=== PATIENT | male | born 1955 | race Asian ===

== ENCOUNTER 2018-04-28 10:43 | Day surgery (SDC) | payer BC ==
[2018-04-28] MEDS: VANCOMYCIN 1 GM (PMX) 250 ML IVPB (13:41)
[2018-04-28] MEDS ORDERED: MIDAZOLAM 1 MG/ML 2 ML INJ (15:33)
[2018-04-28] MEDS ORDERED: PROPOFOL 20 ML ×2 (15:33→17:30)
[2018-04-28] MEDS ORDERED: ONDANSETRON 4 MG INJ (15:34)
[2018-04-28] MEDS ORDERED: FENTAnyl 50 MCG/ML VIAL (15:34)
[2018-04-28] MEDS ORDERED: METOCLOPRAMIDE 10 MG INJ (15:34)
[2018-04-28] MEDS ORDERED: OXYCODONE/ACETAMINOPHEN (5/325) TAB PO (18:25)
[2018-04-28] MEDS ORDERED: OXYCODONE/ACETAMINOPHEN (5/325) TAB (18:26)
[2018-04-28] MEDS: OXYCODONE/ACETAMINOPHEN (5/325) TAB PO (18:29)
== END 2018-04-28 18:40 | disposition home or self-care (01) ==
LOC: SDS 10:43
DX: N21.0 Calculus in bladder (principal); E11.9 Type 2 diabetes mellitus without complications; E03.9 Hypothyroidism, unspecified
CPT/HCPCS: 52318; 82962; 88300

== ENCOUNTER 2018-08-04 07:43 | Day surgery (SDC) | payer BC ==
[~2018-08-04 07:43] MED LIST: CIPRO 400 MG/200 ML D5W IVPB; CIPROFLOXACIN 400 MG in D5W 200 ML IVPB; METOCLOPRAMIDE 10 MG INJ
[2018-08-04 09:34] LABS: ADD MAN DIFF? NO
[2018-08-04 09:39] LABS: BASOPHIL # 0.1 10^3/ul (0.0-0.1); BASOPHILS % 1.1 % (0.0-2.0); EOSINOPHILS # 0.3 10^3/ul (0.0-0.5); EOSINOPHILS % 4.7 % (0.0-7.0); HEMATOCRIT 41.2 % (42.0-52.0); HEMOGLOBIN 13.7 g/dl (14.0-18.0); LYMPHOCYTES # 1.4 10^3/ul (0.8-2.9); LYMPHOCYTES % 19.5 % (15.0-51.0); MEAN CORPUSCULAR HEMOGLOBIN 28.1 pg (29.0-33.0); MEAN CORPUSCULAR HGB CONC 33.3 g/dl (32.0-37.0); MEAN CORPUSCULAR VOLUME 84.4 fl (82.0-101.0); MEAN PLATELET VOLUME 11.1 fl (7.4-10.4); MONOCYTE # 0.4 10^3/ul (0.3-0.9); MONOCYTES % 5.8 % (0.0-11.0); NEUTROPHIL # 4.9 10^3/ul (1.6-7.5); NEUTROPHILS % 68.6 % (39.0-77.0); PLATELET COUNT 224 10^3/UL (140-415); RED BLOOD COUNT 4.88 10^6/ul (4.70-6.10); RED CELL DISTRIBUTION WIDTH 12.2 % (11.5-14.5)
[2018-08-04 09:39] LABS: WHITE BLOOD COUNT 7.2 10^3/ul (4.8-10.8)
[2018-08-04 09:56] LABS: INR 0.97
[2018-08-04] MEDS ORDERED: LACTATED RINGER'S 1,000 ML IV (10:00)
[2018-08-04] MEDS ORDERED: MIDAZOLAM 1 MG/ML 2 ML INJ (10:05)
[2018-08-04] MEDS ORDERED: FENTAnyl 50 MCG/ML VIAL (10:05)
[2018-08-04] MEDS ORDERED: ONDANSETRON 4 MG INJ (10:06)
[2018-08-04] MEDS ORDERED: LIDOCAINE 2% (SDV) 5 ML INJ (10:06)
[2018-08-04] MEDS ORDERED: PROPOFOL 20 ML (10:06)
[2018-08-04 10:09] LABS: ANION GAP 16 (8-16); BLOOD UREA NITROGEN 19 mg/dl (7-20); CALCIUM 9.5 mg/dl (8.4-10.2); CARBON DIOXIDE 21 mmol/L (21-31); CHLORIDE 107 mmol/L (97-110); CREATININE 0.94 mg/dl (0.61-1.24); GLUCOSE 148 mg/dl (70-220); POTASSIUM 4.6 mmol/L (3.5-5.1); SODIUM 139 mmol/L (135-144)
[2018-08-04] MEDS ORDERED: DIPHENHYDRAMINE 50 MG INJ IV (11:30)
[2018-08-04] MEDS ORDERED: IPRATROPIUM (NEB) 0.5 MG/2.5 ML AMP HHN (11:30)
[2018-08-04] MEDS ORDERED: FENTAnyl 50 MCG/ML VIAL IV ×2 (11:30)
[2018-08-04] MEDS ORDERED: HYDROmorphONE 1 MG/5 ML IV SYRINGE IV ×3 (11:30)
[2018-08-04] MEDS ORDERED: KETOROLAC 30 MG INJ IV (11:30)
[2018-08-04] MEDS ORDERED: MEPERIDINE 25 MG INJ IV (11:30)
[2018-08-04] MEDS ORDERED: ONDANSETRON 4 MG INJ IV (11:30)
[2018-08-04] MEDS ORDERED: hydrALAzine 20 MG INJ IV (11:30)
[2018-08-04] MEDS: LABETALOL HCL 20MG INJ IV ×3 (12:42→12:55)
== END 2018-08-04 15:25 | disposition home or self-care (01) ==
LOC: SDS 07:43
DX: N21.0 Calculus in bladder (principal); I10 Essential (primary) hypertension; E11.9 Type 2 diabetes mellitus without complications; Z86.73 Personal history of transient ischemic attack (TIA), and cerebral infarction without residual deficits; N40.0 Benign prostatic hyperplasia without lower urinary tract symptoms
CPT/HCPCS: 52317; 71045; 80048; 82962; 85025; 85610; 85730; 88300; 93005